=== PATIENT | female | born 1960 | race Two or more races ===

== ENCOUNTER 2017-08-05 13:10 | Outpatient (CLI) | payer OTHER | END 2017-08-05 13:19 | disposition home or self-care (01) | LOC: MAMO-SONO 13:10 | DX: Z12.31 Encounter for screening mammogram for malignant neoplasm of breast (principal); N60.11 Diffuse cystic mastopathy of right breast; N60.12 Diffuse cystic mastopathy of left breast ==

== ENCOUNTER 2017-08-09 11:30 | Outpatient (CLI) | payer OTHER | END 2017-08-09 17:25 | disposition home or self-care (01) | LOC: NUCLEAR 11:30 | DX: M81.0 Age-related osteoporosis without current pathological fracture (principal) ==